=== PATIENT | female | born 1955 | race African-American/Black ===

== ENCOUNTER → 2019-01-14 | Outpatient (CLI) | payer OTHER ==
--- NOTE | 2019-01-14 14:39 | KCIC ---
EXAM: Dual energy x-ray absorptiometry (DEXA). HISTORY: Postmenopausal female presents for osteoporosis screening. COMPARISON: None. TECHNIQUE: Dual energy x-ray absorptiometry of the lumbar spine and left hip was performed. Calculation of bone mineral density based on standard deviations above or below the expected young adult normal value (T-score) was completed. FINDINGS: The average bone mineral density in the 1st through 4th lumbar vertebrae is 1.148 g/cmxcm, corresponding with a T-score of 0.9. The average total bone mineral density in the left hip is 0.992 g/cmxcm, corresponding with a T-score of 0.4. IMPRESSION: Normal bone mineral density. Note: Definitions established by the World Health Organization: 1. Normal: T-score is -1.0 or above. 2. Osteopenia: T-score is between -1.0 and -2.5 . 3. Osteoporosis: T-score is -2.5 or below. Electronically signed by: Lona Corcoran MD (01/14/2019 2:36 PM) [place] [id number]
--- NOTE | 2019-01-15 16:36 | KCIC ---
Bilateral digital screening mammograms with 3-D tomosynthesis: Reason for examination: Routine screening. Comparison is made to previous study dated 01/29/2018. Bilateral mammograms in CC and oblique projections were obtained with 2-D imaging and 3-D tomosynthesis imaging on a Siemens Inspiration unit and reviewed on the workstation. Interpretation was made with the benefit of CAD. The skin and nipples show no abnormalities. No abnormal axillary lymph nodes are seen. The breast parenchyma is heterogeneously dense. (Breast density: Category C.) There continues to be a 1 cm nodular density in the posterior superior right breast on oblique view which is probably in the medial breast at the 1:00 position. Further evaluation with coned compression views and ultrasound is recommended. There are no other dominant masses, suspicious calcifications or architectural distortion. Benign calcifications are present. Impression: 1 cm nodule posterior superiorly in the right breast probably at the 1:00 position. Recommend further evaluation with coned compression views and ultrasound. Your patient's mammogram demonstrates that she has dense breast tissue (breast density category C or D), which could hide abnormalities, and if she has other risk factors for breast cancer that have been identified, she might benefit from supplemental screening tests that may be suggested by you as her ordering physician. Dense breast tissue, in and of itself, is a relatively common condition. Therefore, this information is not provided to cause undue concern, but rather to raise your awareness and to promote discussion with your patient regarding the presence of other risk factors, in addition to dense breast tissue. Your patient's mammography results will be sent to her. BI-RAD Category 0: Incomplete. Needs additional imaging evaluation. "Our facility is accredited by the [employer] Mammography Program." This patient's information has been entered into a reminder system for the patient to be notified with the results of her examination and a target date for the next mammogram. Electronically signed by: Tyra Mulligan MD (01/15/2019 4:33 PM) [facility]
== END | disposition home or self-care (01) ==
LOC: KCIC DEXA 13:46
PROVIDERS: ATTEND Family Medicine
DX: Z12.31 Encounter for screening mammogram for malignant neoplasm of breast (principal); Z13.820 Encounter for screening for osteoporosis; N63.12 Unspecified lump in the right breast, upper inner quadrant; Z78.0 Asymptomatic menopausal state
CPT/HCPCS: 77063; 77067; 77080

== ENCOUNTER → 2019-01-27 | Outpatient (CLI) | payer OTHER ==
--- NOTE | 2019-01-27 14:17 | KCIC ---
RIGHT DIAGNOSTIC MAMMOGRAPHY AND BREAST ULTRASOUND History: Abnormal screening mammogram. Comparison: Bilateral mammogram 01/14/2019 [facility] and 01/29/2018 [facility]. Technique: Right spot compression CC and MLO digital mammogram views were obtained. Findings: Breast Tissue Density C : The breasts are heterogeneously dense, which may obscure small masses. The nodular asymmetry in the upper inner right breast likely persists on spot compression MLO view but is less well seen without tomosynthesis. Real-time ultrasound imaging of the upper inner right breast is performed. Likely corresponding to the nodular asymmetry in the right breast 1:00 position 5 cm from the nipple, there is a heterogeneous hypoechoic mass measuring 10 x 4 x 8 mm. The margins are partially circumscribed and partially ill-defined. Color Doppler interrogation is negative. There is no abnormal right axillary lymph node. IMPRESSION: Nodular asymmetry in the upper inner right breast persists with additional mammogram views. On ultrasound there is a subcentimeter mass with indeterminate features. Recommend further evaluation with ultrasound-guided biopsy. BI-RADS Category 4: Suspicious. The asphalt distributor operator informed the patient of the recommendation for biopsy at the conclusion of the ultrasound. I called results to Vida Camilo APRN at 2:12 PM. The images were reviewed with computer-aided detection. Patient information is entered into the reminder system with a target due date for the next screening mammogram. Mammography is the most sensitive method for finding small breast cancers, but it does not detect them all and is not a substitute for careful clinical examination. A negative mammogram does not negate a clinically suspicious finding and should not result in delay in biopsying a clinically suspicious abnormality. "Our facility is accredited by the [employer] Mammography Program." Electronically signed by: Hu Ross MD (01/27/2019 2:14 PM) [facility]
--- NOTE | 2019-01-27 14:17 | KCIC ---
RIGHT DIAGNOSTIC MAMMOGRAPHY AND BREAST ULTRASOUND History: Abnormal screening mammogram. Comparison: Bilateral mammogram 01/14/2019 [facility] and 01/29/2018 [facility]. Technique: Right spot compression CC and MLO digital mammogram views were obtained. Findings: Breast Tissue Density C : The breasts are heterogeneously dense, which may obscure small masses. The nodular asymmetry in the upper inner right breast likely persists on spot compression MLO view but is less well seen without tomosynthesis. Real-time ultrasound imaging of the upper inner right breast is performed. Likely corresponding to the nodular asymmetry in the right breast 1:00 position 5 cm from the nipple, there is a heterogeneous hypoechoic mass measuring 10 x 4 x 8 mm. The margins are partially circumscribed and partially ill-defined. Color Doppler interrogation is negative. There is no abnormal right axillary lymph node. IMPRESSION: Nodular asymmetry in the upper inner right breast persists with additional mammogram views. On ultrasound there is a subcentimeter mass with indeterminate features. Recommend further evaluation with ultrasound-guided biopsy. BI-RADS Category 4: Suspicious. The outboard motor mechanic informed the patient of the recommendation for biopsy at the conclusion of the ultrasound. I called results to Vida Camilo APRN at 2:12 PM. The images were reviewed with computer-aided detection. Patient information is entered into the reminder system with a target due date for the next screening mammogram. Mammography is the most sensitive method for finding small breast cancers, but it does not detect them all and is not a substitute for careful clinical examination. A negative mammogram does not negate a clinically suspicious finding and should not result in delay in biopsying a clinically suspicious abnormality. "Our facility is accredited by the [employer] Mammography Program." Electronically signed by: Hu Ross MD (01/27/2019 2:14 PM) [facility]
== END | disposition home or self-care (01) ==
LOC: KCIC MAMMO 12:43
PROVIDERS: ATTEND Physician Assistant Surgical
DX: N63.10 Unspecified lump in the right breast, unspecified quadrant (principal)
CPT/HCPCS: 76641; 77065

== ENCOUNTER → 2019-02-13 | Outpatient (CLI) | payer OTHER ==
--- NOTE | 2019-02-17 11:07 | PATHOLOGY ---
[facility] Accession Number: [id number] . 01 Material submitted: . breast - RIGHT BREAST MASS, 1:00. Modifiers: right, 1:00 . 01 Clinical history: . Right breast mass . 02 Diagnosis: Breast tissue, right breast mass 1:00 needle biopsies: - Sclerosing adenosis. See comment. - Chronic inflammation, focal. (JPM:deep submergence vehicle crewmember/steven; 02/17/2019) MBR/02/17/2019 . 02 Comment: Sections of the right breast mass 1:00 needle biopsies reveal breast tissue. There are fairly well-demarcated nodular foci of sclerosis containing somewhat haphazardly oriented tubules. There are a few associated microcalcifications. Properly controlled stains for AE1/AE3, p63, and smooth muscle myosin heavy chain are obtained on blocks A2 and A3 and yield the following results: . AE1/AE3 (A2): Tubular epithelial cells within areas of sclerosis positive. P63 (A2): Presence of myoepithelial cells in tubules within areas of sclerosis. Smooth muscle myosin heavy chain (A2): Presence of myoepithelial cells in tubules within areas of sclerosis. . AE1/AE3 (A3): Tubular epithelial cells within areas of sclerosis positive. P63 (A3): Presence of myoepithelial cells in tubules within areas of sclerosis. Smooth muscle myosin heavy chain (A3): Presence of myoepithelial cells in tubules within areas of sclerosis. . The morphologic and immunophenotypic findings are supportive of the diagnosis of sclerosing adenosis. There is no evidence of malignancy. . (JPM:deep submergence vehicle crewmember/steven; 02/17/2019) . Special stains performed: Immunoperoxidase stains for AE1/AE3, p63 and smooth muscle myosin heavy chain on A2, and AE1/AE3, p36 and smooth muscle myosin heavy chain on A3. . 02 Electronically signed: . Ken Penny MD, Pathologist NPI- [id number] . 01 Gross description: . The specimen is received in formalin, labeled "Violet Gill, right breast". Received are multiple needle cores of fibrofatty tissue measuring 2.2 x 2.0 x 0.5 cm in aggregate dimensions. The specimen is submitted entirely in cassettes A1 through A3. The cold ischemic time is 5 minutes. The total formalin fixation time is 13 hours and 13 minutes. (CAA; 02/13/2019) QAC/QAC . 02 Pathologist provided ICD-10: N60.21, N61.0 . 02 CPT . 421386, S99804, F07612 Specimen Comment: A courtesy copy of this report has been sent to Specimen Comment: [phone], , . Specimen Comment: Report sent to ,DR ESLBY / DR ASTORGA Performed at: 01 [facility] [address], [place] [id number] MD Last Martino MD Phone: [phone] Performed at: 02 [facility] [address] [place], [place] [id number] MD Ken Penny MD Phone: [phone]
--- NOTE | 2019-02-17 16:23 | RAD ---
Ultrasound-guided right breast biopsy, 02/13/2019: History: Suspicious breast lesion Previous imaging demonstrated a small suspicious lesion at the 1:00 location in the right breast. Under local anesthesia, aseptic conditions and sonographic guidance the [employer] biopsy instrument was passed into this lesion via a medial approach. Multiple 12-gauge vacuum-assisted core samples were obtained and sent to pathology for evaluation. A biopsy marker was deposited at the biopsy site. The biopsy instrument was then removed and hemostasis obtained. Two-view postprocedural digital mammograms were then obtained to document position of the biopsy marker. The patient tolerated the procedure well and left the department in good condition. Note: The subsequent pathology report indicated the presence of sclerosing adenosis and chronic inflammation. This is considered to be a concordant finding. Follow-up right mammography in 6 months and bilateral mammography at one year is suggested.
== END | disposition home or self-care (01) ==
LOC: US 08:53
PROVIDERS: ATTEND Surgery
DX: N60.21 Fibroadenosis of right breast (principal); N61.0 Mastitis without abscess
CPT/HCPCS: 19083; 77065; 88305; 88341; 88342; C1713; 19081; 76942